=== PATIENT | female | born 1990 | race Asian ===

== ENCOUNTER 2019-10-03 05:25 | Inpatient (IN) | payer MEDICAID, OTHER, SELFPAY ==
[2019-10-03] MEDS ORDERED: hydrALAZINE 20 MG/ML VIAL SLOW IVP PRN ×2 (05:31→06:38)
[2019-10-03 05:52] VITALS: BMI 28.3
--- NOTE | 2019-10-03 06:12 | PDOC.LDHP ---
Labor and Delivery H&P Chief complaint: loss of fluid HPI: 28 y/o G1 at 39w1d, patient of Dr. Castaneda, presents with a small amount of wetness in her underwear for the last 2 days. She describes it as milky. No continuous leaking or large gush. Also having ctx q 5 mins, not very painful. Denies VB or decreased FM. ROS neg for HEENT, cv, pulm, gi, gu, neuro, psych, skin, musculoskeletal or constitutional symptoms other than mentioned above. OB History Details: First Current complications: none Past Medical History: None Current medications: pre-pankaj vitamins Previous surgical history: none Allergies/Adverse Reactions: Allergies Allergy/AdvReac Type Severity Reaction Status Date / Time No Known Allergies Allergy Verified 10/03/19 05:46 Social history: none - Physical Exam Vital signs reviewed and normal: yes General: NAD, resting Lungs: nonlabored breathing Abdomen: gravid Extremeties: no edema FHT: category 1 (130s, mod variability, + accels, no decels) [place] contractions every: 3-5 mins - Vaginal Exam cm dilated: 1 Effacement: 50% Station: -3 - Assessment L&D Assessment: term rupture in membranes - Plan Plan: admit to L&D, labor augmentation if indicated, informed consent obtained, anesthesia consult for pain management (if desired)
[2019-10-03 06:25] LABS: Amnisure Test RUPTURE DETECTED (No Rupture)
[2019-10-03 06:26] LABS: Amnisure Internal Control QC ACCEPTABLE (ACCEPTABLE)
[2019-10-03] MEDS ORDERED: Methylergonovine 0.2 MG/ML VIAL IM PRN (06:38)
[2019-10-03] MEDS ORDERED: Ondansetron PF 4 MG/2 ML Vial IVP PRN ×2 (06:38→11:33)
[2019-10-03] MEDS ORDERED: HYDROcodone/Acetaminophen 5/325 mg Tablet PO PRN ×2 (06:38)
[2019-10-03] MEDS ORDERED: Acetaminophen 500 MG TAB PO PRN (06:38)
[2019-10-03] MEDS ORDERED: Misoprostol 200 MCG TAB PR PRN (06:38)
[2019-10-03] MEDS ORDERED: Promethazine HCl 25 MG/ML VIAL IM PRN ×2 (06:38→11:33)
[2019-10-03] MEDS ORDERED: Carboprost 250 MCG/ML AMP IM PRN (06:38)
[2019-10-03] MEDS ORDERED: Butorphanol Tartrate 1 MG/ML VIAL SLOW IVP PRN (06:38)
[2019-10-03] MEDS ORDERED: NS / Oxytocin 40 units/1000ml 1,000 ML IV PRN (06:38)
[2019-10-03] MEDS ORDERED: Lidocaine 1% (PF) 30 ML VIAL SC PRN (06:38)
[2019-10-03] MEDS ORDERED: Ibuprofen 800 MG TAB PO PRN (06:38)
[2019-10-03] MEDS ORDERED: Diphenoxylate HCl/Atropine Tablet PO PRN ×2 (06:38)
[2019-10-03] MEDS: Lactated Ringer's 1,000 ML IV SCH ×2 (07:25→19:06)
[2019-10-03 07:43] LABS: Hemoglobin 12.8 g/dL (12.0-16.0); Mean Corpuscular HGB CONC 33.1 g/dL (32.0-36.0); Mean Corpuscular Hemoglobin 30.4 pg (27.0-31.0); Mean Platelet Volume 9.7 fL (7.4-10.4); Platelet Count 147 thou/uL (130-400); RBC Distribution Width 13.1 % (11.5-14.5); White Blood Cell (WBC) Count 8.9 thou/uL (4.8-10.8)
[2019-10-03] MEDS: NS w/ Oxytocin 10 units 500 ML IV SCH (07:45)
[2019-10-03 08:19] LABS: HBSAg Index 0.15 S/CO (0-0.99); Hep B Surf Ag Non-Reactive S/CO (NonReactive); Syphilis Antibody Nonreactive (Nonreactive); Syphilis Antibody Index 0.04 S/CO (<1.00 Non-Reactive)
[2019-10-03] MEDS ORDERED: Bupivacaine HCl 0.5%/Epinephrine 1:200,000/PF 30 ml Vial ONE (09:13)
[2019-10-03] MEDS ORDERED: Bupivacaine/Epinephrine 0.25% 30 ML VIAL ONE (09:13)
[2019-10-03] MEDS ORDERED: EPHEDRINE 25 MG/5 ML SYRINGE ONE (09:13)
[2019-10-03] MEDS ORDERED: Fentanyl 4 mcg/Bup 0.1% Cadd 100 ML ONE ×2 (10:55→19:36)
[2019-10-03] MEDS ORDERED: Acetaminophen 325 MG TAB PO PRN (11:33)
[2019-10-03] MEDS ORDERED: Naloxone HCl 0.4 mg/ml Vial IVP PRN ×2 (11:33)
[2019-10-03] MEDS ORDERED: diphenhydrAMINE 50 MG/ML VIAL IVP PRN (11:33)
[2019-10-03] MEDS ORDERED: Lactated Ringer's 500 ML IV PRN (11:33)
[2019-10-03] MEDS ORDERED: EPHEDRINE 25 MG/5 ML SYRINGE SLOW IVP PRN (11:33)
[2019-10-03] MEDS ORDERED: Communication Order-Pharmacy FS SCH (11:45)
[2019-10-03] MEDS: Fentanyl 4 mcg/Bupivacaine 0.1% Cassette 100 ML EPIDURAL SCH (19:38)
[2019-10-04] MEDS: NS w/ Oxytocin 10 units 500 ML IV SCH ×2 (02:34→07:46)
[2019-10-04] MEDS ORDERED: Fentanyl 4 mcg/Bup 0.1% Cadd 100 ML ONE (04:04)
[2019-10-04] MEDS: Fentanyl 4 mcg/Bupivacaine 0.1% Cassette 100 ML EPIDURAL SCH (04:06)
[2019-10-04] MEDS: Lactated Ringer's 1,000 ML IV SCH ×3 (07:46→11:40)
[2019-10-04] MEDS ORDERED: hydrALAZINE 20 MG/ML VIAL SLOW IVP PRN ×2 (08:03→14:49)
[2019-10-04] MEDS ORDERED: Ondansetron PF 4 MG/2 ML Vial IVP PRN ×3 (08:03→14:49)
[2019-10-04] MEDS ORDERED: Promethazine HCl 25 MG/ML VIAL IM PRN ×2 (08:03→13:49)
[2019-10-04] MEDS ORDERED: Dextrose 5%-Lactated Ringers 1,000 ML IV SCH (08:15)
[2019-10-04] MEDS ORDERED: Fentanyl 100 MCG/2 ML VIAL ONE (12:19)
[2019-10-04] MEDS ORDERED: Bicitra 30 ML UDCUP ONE (12:21)
--- NOTE | 2019-10-04 12:25 | PDOC.EVN ---
Event Note - Event Note Event Note: Patient has been undergoing pitocin augmentation for srom at 1cm over 24 hours. she has slowly progressed to 5 cm/80/-1. Pitocin has had to be stopped off and on for non reassurring fhrt...She has now develpoed frequent late decelerations that have failed to resolve with conservative measures and pitocin has been stopped. She remains afebrile. A/P: 28 y/o at 39-40 weeks. Failure to progress and non reassuring heart rate tracing. Proceed with primary section.
[2019-10-04] MEDS ORDERED: EPHEDRINE 25 MG/5 ML SYRINGE ONE (12:28)
[2019-10-04] MEDS ORDERED: Oxytocin 10 UNITS/ML VIAL ONE (12:28)
[2019-10-04] MEDS ORDERED: Bicitra 30 ML UDCUP PO SCH (12:30)
[2019-10-04] MEDS ORDERED: Azithromycin 500 MG in Sodium Chloride 0.9% 250 ML 250 ML IVPB SCH (12:30)
[2019-10-04] MEDS ORDERED: CEFAZOLIN 2 GM in Premix Bag 1 BAG IVPB SCH (12:30)
[2019-10-04] MEDS ORDERED: Ondansetron PF 4 MG/2 ML Vial ONE (12:44)
[2019-10-04] MEDS ORDERED: MORPHINE 5 MG/10 ML PF VIAL ONE (12:49)
[2019-10-04] MEDS ORDERED: PHENYLEPHRINE-NS 100 MCG/ML 10 ML SYRINGE ONE (12:53)
[2019-10-04] MEDS ORDERED: Midazolam HCl 2 mg/2 ml Vial ONE (13:00)
--- NOTE | 2019-10-04 13:18 | PDOC.OPDEL ---
OB Operative/Delivery Note Delivery Dr/Surgeon: Aleshia Castaneda Pre-Delivery Diagnosis: arrest of dilation, non-reassuring tracing Procedure/Post Delivery Dx: primary low transverse CS Weeks gestation: 39 (39.2 wks) Anesthesia: epidural - Findings A Sex: male Weight: 2.97 kg - 1 min: 8 - 5 min: 10 - Additional Findings/Plan Placenta delivered: manual removal findings: low transverse hysterotomy without extension Compilations/Other Findings: Please see dictation for full details. Post delivery plan: routine recovery
[2019-10-04] MEDS ORDERED: diphenhydrAMINE 50 MG/ML VIAL IVP PRN (13:49)
[2019-10-04] MEDS ORDERED: Naloxone HCl 0.4 mg/ml Vial IVP PRN ×2 (13:49)
[2019-10-04] MEDS ORDERED: Naloxone HCl 0.4 mg/ml Vial IV PRN (13:49)
[2019-10-04] MEDS ORDERED: Promethazine HCl 25 MG SUPP PR PRN (13:49)
[2019-10-04] MEDS ORDERED: Communication Order-Pharmacy FS SCH (14:00)
[2019-10-04] MEDS ORDERED: diphenhydrAMINE 25 MG CAP PO PRN (14:49)
[2019-10-04] MEDS ORDERED: HYDROcodone/Acetaminophen 5/325 mg Tablet PO PRN (14:49)
[2019-10-04] MEDS ORDERED: NS / Oxytocin 40 units/1000ml 1,000 ML IV SCH (14:49)
[2019-10-04] MEDS ORDERED: Lanolin Ointment 7 GM TUBE TOP PRN (14:49)
[2019-10-04] MEDS: Ketorolac Tromethamine 30 MG/ML VIAL IVP PRN (19:38)
--- NOTE | 2019-10-04 22:00 | PDOC.EVN ---
Event Note - Event Note Event Note: Patient noted to have febrile episodes x 2 over 4 hours-100.-100.5..Has risk factors for metritis with prolonged rupture membranes followed by delivery. Initiate IV Unasyn therapy...
[2019-10-04] MEDS: Ampicillin/Sulbactam 3 GM in Sodium Chloride 0.9% 100 ML IVPB SCH (22:10)
[2019-10-05] MEDS: Docusate Calcium (SURFAK) 240 MG CAP PO SCH ×3 (00:16→22:06)
[2019-10-05] MEDS: Ibuprofen 800 MG TAB PO SCH ×4 (00:16→22:06)
[2019-10-05] MEDS: Ferrous Sulfate 325 MG TAB PO SCH ×3 (00:16→22:06)
[2019-10-05] MEDS: Lactated Ringer's 1,000 ML IV SCH (00:17)
[2019-10-05] MEDS: Ketorolac Tromethamine 30 MG/ML VIAL IVP PRN ×2 (00:18→06:22)
[2019-10-05 06:06] LABS: Hemoglobin 9.1 g/dL (12.0-16.0); Mean Corpuscular HGB CONC 33.6 g/dL (32.0-36.0); Mean Corpuscular Hemoglobin 31.1 pg (27.0-31.0); Mean Corpuscular Volume 92.7 fL (78.0-98.0); Mean Platelet Volume 9.2 fL (7.4-10.4); Platelet Count 110 thou/uL (130-400); RBC Distribution Width 12.9 % (11.5-14.5); Red Blood Cell (RBC) Count 2.93 mill/uL (4.20-5.40); White Blood Cell (WBC) Count 14.4 thou/uL (4.8-10.8)
[2019-10-05] MEDS: Ampicillin/Sulbactam 3 GM in Sodium Chloride 0.9% 100 ML IVPB SCH ×3 (06:23→18:01)
--- NOTE | 2019-10-05 07:55 | PDOC.PP ---
Post Progress Note Post Day #: 1 Subjective: Good pain control PO intake tolerated: yes Flatus: yes Vital Signs (12 hours) Temp Pulse Resp BP Pulse Ox 10/05/19 01:00 98.3 F 88 18 103/53 L 10/04/19 22:00 98.4 F 87 18 95/53 L 10/04/19 21:21 100.5 F H 10/04/19 20:00 98 Weight Weight 160 lb - Physical Examination Abdominal: + bowel sounds, no distention, appropriately TTP Extremities: negative homans (B) Result Diagrams: 10/05/19 05:42 Additional Labs: Post Labs Blood Type A POSITIVE 10/03/19 07:58 Hep Bs Antigen Non-Reactive S/CO (NonReactive) 10/03/19 07:29 - Assessment/Plan Post op day1 from primary c/s for failure to progress and non reasurring heart rate tracing. Hemodynamically stable. Febrile episode last PM. Unasyn initiated due to metritis risk factors. Afebrile this AM. Would continue antibiotics for 48 hours afebrile..
--- NOTE | 2019-10-05 08:56 | OP ---
DATE OF PROCEDURE: 10/04/2019 RESIDENT SURGEON: Natty Monk DO PROCEDURE: Primary low-transverse section. PREOPERATIVE DIAGNOSES: 1. Term intrauterine . 2. Prelabor rupture of membranes. 3. Non-reassuring heart tones with recurrent late decelerations. 4. Arrest of dilation. POSTOPERATIVE DIAGNOSES: 1. Term intrauterine , delivered. 2. Primary low transverse . 3. Prelabor rupture of membranes. 4. Non-reassuring heart tones with recurrent late decelerations. 5. Arrest of dilation. INDICATIONS: This is a very pleasant 28-year-old female, G1, P0, who presented at 39.1 weeks' gestation and was found to be ruptured with positive AmniSure. Augmentation was initiated. However, the patient stalled at 5 cm and was having recurrent decelerations, so decision was made to proceed with a primary low-transverse . PROCEDURE IN DETAIL: After risks, benefits, and alternatives were discussed with the patient, she gave informed consent. Consents were signed. Ancef 2 g was given along with azithromycin 500 mg prior to procedure. The patient was taken back to the operating room. She was placed in the supine position with left lateral tilt, and prepped and draped in usual sterile fashion. Of note, she already had epidural in place, which was bolused prior to initiation of the procedure. She was tested, and the epidural was noted to be sufficient. Pfannenstiel incision was made 2 cm above the pubic bone and carried down to the level of the fascia, which was sharply nicked. The cut fascial edges were extended laterally with Murillo scissors. Inferior and superior edges of the cut fascia were elevated with Inocencia clamps. The underlying rectus muscles were sharply and bluntly dissected free. The rectus muscles were entered in the midline, and the peritoneum was entered bluntly. A bladder blade was placed. The uterus was examined and noted to be free of adhesions. An Atilio O was then placed, and a low-transverse score was made along the lower uterine segment using clean scalpel. The hysterotomy was extended in the cephalad caudad direction. The infant was noted to be vertex and deep within the pelvis, but was delivered easily with fundal pressure through the hysterotomy site. Nuchal cord x1. Cord was clamped and cut, and grossly normal male infant was handed to waiting nurse. The cord blood was collected. The placenta was manually removed and noted to be intact with 3-vessel cord and discarded. The uterus was curetted with a dry lap x2, no notable placental fragments were left behind. The uterus was then closed using #[address] in a running locking fashion. A partial imbricating layer was also performed using # 1 Monocryl for hemostasis. After this, hemostasis was noted. The ovaries and tubes were examined and noted to be normal. The Atilio O was removed, and hysterotomy was again examined and noted to be hemostatic. The abdominal muscles were examined , and no bleeders appreciated. The fascia was then closed using 0 PDS suture in a running nonlocking fashion, using two separate stitches tied together in the midline fascia. The subcutaneous tissues was irrigated and bleeders were cauterized. The skin was approximated using klarissa. A pressure dressing was placed. All counts were correct. QUANTITATIVE BLOOD LOSS: 700 mL. DRAINS: Beltran to gravity, draining clear urine. COMPLICATIONS: None. FINDINGS: Grossly normal male infant with of 8 and 10 at one and five minutes respectively with a weight of 2.97 kg. Job ID: [id number] [facility]
[2019-10-05] MEDS ORDERED: Adacel (T-DAP) 0.5 ML SYRINGE IM ONE (09:00)
[2019-10-05] MEDS: Simethicone Chewable 80 MG TAB PO PRN (09:37)
[2019-10-05] MEDS: Prenatal Vitamin 1 TAB PO SCH (09:37)
[2019-10-05] MEDS: HYDROcodone/Acetaminophen 5/325 mg Tablet PO PRN (17:57)
[2019-10-06] MEDS ORDERED: Sodium Chloride 0.9% 10 ML ONE (00:01)
[2019-10-06] MEDS: Ampicillin/Sulbactam 3 GM in Sodium Chloride 0.9% 100 ML IVPB SCH ×2 (00:04→06:02)
[2019-10-06] MEDS: Ibuprofen 800 MG TAB PO SCH ×3 (06:01→20:54)
[2019-10-06] MEDS: Simethicone Chewable 80 MG TAB PO PRN ×3 (06:13→20:53)
--- NOTE | 2019-10-06 06:21 | PDOC.PP ---
Post Progress Note Post Day #: 2 (Postop) Subjective: Doing well, states passing gas PO intake tolerated: yes Flatus: yes Ambulation: yes Vital Signs (12 hours) Temp Pulse Resp BP Pulse Ox 10/06/19 00:00 98.9 F 75 15 116/61 10/05/19 20:10 98.8 F 88 16 97/55 L 97 Weight Weight 160 lb - Physical Examination General: NAD Respiratory: non-labored breathing Abdominal: + bowel sounds, lochia, appropriately TTP Deviation from normal: Distension from gas (tympanic) noted by me at bedside, but she is in NAD Extremities: negative homans (B) Skin: CS incision dry & intact (klarissa in place), no rash Neurological: no gross focal deficits Psychiatric: A&Ox3, normal affect Result Diagrams: 10/05/19 05:42 Additional Labs: Post Labs Blood Type A POSITIVE 10/03/19 07:58 Hep Bs Antigen Non-Reactive S/CO (NonReactive) 10/03/19 07:29 (1) delivery delivered Code(s): O82 - ENCOUNTER FOR DELIVERY WITHOUT INDICATION Status: Acute - Assessment/Plan Doing well on POD2. I reviewed with her Unasyn (will DC today) and afebrile state, ok to stop ABX. Incision C/D/I with klarissa. Gas distension: has mylicon written for, I encouraged ambulation. She states is passing flatus. Continue inhouse OBS with prob DC to home tomorrow Tuesday
[2019-10-06] MEDS: Prenatal Vitamin 1 TAB PO SCH (09:55)
[2019-10-06] MEDS: Ferrous Sulfate 325 MG TAB PO SCH ×2 (09:56→20:53)
[2019-10-06] MEDS: Docusate Calcium (SURFAK) 240 MG CAP PO SCH ×2 (09:56→20:53)
[2019-10-06] MEDS: HYDROcodone/Acetaminophen 5/325 mg Tablet PO PRN (11:32)
[2019-10-07] MEDS: Ibuprofen 800 MG TAB PO SCH (05:32)
[2019-10-07] MEDS: Simethicone Chewable 80 MG TAB PO PRN (05:33)
[2019-10-07] MEDS: Prenatal Vitamin 1 TAB PO SCH (08:08)
[2019-10-07] MEDS: Docusate Calcium (SURFAK) 240 MG CAP PO SCH (08:08)
[2019-10-07] MEDS: Ferrous Sulfate 325 MG TAB PO SCH (08:08)
[2019-10-07] MEDS: HYDROcodone/Acetaminophen 5/325 mg Tablet PO PRN (08:12)
[2019-10-07 09:12] VITALS: BP 119/62; TEMP 98.4
--- NOTE | 2019-10-10 03:31 | PQF ---
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 She was given ABX, per Dr Castaneda, as prophylaxis for metritis. From my understandiung, she did not have a DX of metritis (ruled out) however I was not present when this plan of care ( antibiotic coverage) was made as it was made by Dr Castaneda. It would be best for you to ask Dr Castaneda directly for a more clear answer. DATE: 10/10/19 ATTN: Maximiliano Berrios Please exercise your independent, professional judgment in responding to the clarification form. Clinical indicators are provided on the bottom of this form for your review Can you please further clarify if Metritis is ruled in or ruled out diagnosis? Metritis [ ] Ruled in diagnosis [ ] Continue to treat [ ] Resolved [ ] Ruled out diagnosis [ ] Cannot rule out diagnosis [ ] Other diagnosis [ X ] Unable to determine In addition, please specify: Present on Admission (POA): [ ] Yes [ X] No [ ] Unable to determine For continuity of documentation, please document condition throughout progress notes and discharge summary. Thank You. CLINICAL INDICATORS - SIGNS / SYMPTOMS / LABS H and P pg.1- presents with small amount of wetness in her underwear for the last 2 days Event notes 10/03- Has high risk factors for metritis with prolonged rupture membranes followed by CS Post PN pg.2- Unasyn initiated due to metritis risk factors. Afebrile this AM Vital Signs 10/03: Cqko=450.5 Dvths=266 Respi=18 BP=95/53 Labs WBC: 10/02=8.9 10/04=14.4 39 Weeks AOG- H and P pg.1 29 years old- H and P pg.1 Late deceleration- event notes Prolonged rupture membranes-Event notes 10/03 TREATMENTS IV fluids- JUN Unasyn 3gm IV-JUN 28 Ancef 2gm IV-JUN 28 (This form is maintained as a part of the permanent medical record) 2014 [employer] [place] [employer]. All Rights Reserved [email or web address]
== END 2019-10-07 13:50 | disposition home or self-care (01) | DRG 787 ==
LOC: L&D/OP 05:25 → L&D 06:38 → 3SW 10-04 16:06
PROVIDERS: ADMIT Obstetrics & Gynecology; ATTEND Obstetrics & Gynecology
PROC: 10D00Z1 Extraction of Products of Conception, Low, Open Approach (ICD-10-PCS; principal; 2019-10-05)
DX: O76 Abnormality in fetal heart rate and rhythm complicating labor and delivery (principal); O75.2 Pyrexia during labor, not elsewhere classified; Z3A.39 39 weeks gestation of pregnancy; Z37.0 Single live birth; O62.0 Primary inadequate contractions
CPT/HCPCS: 36415; 51702; 84112; 85027; 86780; 86850; 86900; 86901; 87340; 99285; J0295; J0456; J0670; J0690; J1200; J1885; J2250; J2274; J2405; J2590; J3010; J3490; J7050